=== PATIENT | male | born 1970 | race African-American/Black ===

== ENCOUNTER 2017-02-25 11:42 | Emergency (ER) | payer OTHER ==
[2017-02-25] MEDS ORDERED: Morphine INJ* 4 MG/ML 1 ML SYRINGE IV ONE (12:43)
[2017-02-25] MEDS ORDERED: Ondansetron INJ* 2 MG/ML VIAL IV ONE (12:43)
[2017-02-25] MEDS: NS 0.9% 1000 ML* 2,000 ML IV ONE ×2 (13:08→13:09)
[2017-02-25 13:43] LABS: Hematocrit 49 % (42-52); Hemoglobin 16.5 g/dl (14.0-18.0); Mean Corpuscular HGB Conc 34 g/dl (31-36); Mean Corpuscular Hemoglobin 32 pg (27-31); Mean Corpuscular Volume 97 fL (80-94); Red Cell Distribution Width 14 % (10.5-15)
[2017-02-25 13:50] LABS: Troponin I 0.01 ng/mL (<0.04)
[2017-02-25 13:56] LABS: Comments Flag Yes
[2017-02-25 13:57] LABS: Albumin 4.7 g/dL (3.2-5.2); BUN/Creatinine Ratio 15.8 (8-20); C Reactive Protein 2.96 mg/L (< 5.00); Calcium 9.8 mg/dL (8.6-10.3); EGFR African American 74.4 (>60); EGFR Non-African American 57.9 (>60); Globulin 3.3 g/dL (2-4); Potassium 3.9 mmol/L (3.5-5.0); Total Bilirubin 0.8 mg/dL (0.2-1.0)
[2017-02-25 13:59] LABS: Add Diff/Slide Review? Slide Review Added
[2017-02-25] MEDS ORDERED: Iodixanol* (CONTRAST) 320 MG/ML 100 ML SDV IV ONE (14:11)
--- NOTE | 2017-02-25 15:39 | RAD ---
Indication: Right lower quadrant pain. Contrast: Administered 100.0 ml of VISIPAQUE 320 mg/ml CT of the abdomen and pelvis was performed after oral and IV contrast administration. Coronal and sagittal reconstructed images were obtained. Lung bases demonstrate no pleural fluid, nodules or masses. Heart is of normal size without evidence of pericardial effusion. The liver is normal in size. No focal lesions or intrahepatic ductal dilatation is noted. The gallbladder demonstrates no calcific gallstones, pericholecystic fluid or wall thickening. The pancreas demonstrates no mass or pancreatic duct dilatation. The common duct is not dilated. The spleen is normal in size. Left adrenal mass measuring 14 mm is noted. This is unchanged since 2009. This likely represents an adenoma. Right adrenal gland is unremarkable. The kidneys demonstrate symmetric nephrograms. No retroperitoneal lymphadenopathy is noted. No dilated loops of bowel are noted. The colon is filled with stool. The urinary bladder is otherwise unremarkable. No evidence of bowel obstruction is noted. The prostate and seminal vesicles are grossly unremarkable. Degenerative disc disease is noted at multiple levels. IMPRESSION: Patient status post appendectomy. No abnormal masses or fluid collections are noted. Left adrenal gland mass measuring 14 mm unchanged since 2009. No hernias are noted. No other masses or fluid collections are identified.
[2017-02-25 16:45] LABS: Urine Bilirubin Negative (Negative); Urine Glucose Negative (Negative); Urine Nitrite Negative (Negative)
[2017-02-25] MEDS ORDERED: oxyCODONE/Acetamin 5/325 MG* TAB PO ONE (17:05)
--- NOTE | 2017-02-25 17:05 | ED ---
Chirag Spaulding Thomas, scribed for Augustus Emery MD on 02/25/17 at 1242 . Abdominal Pain/Male - HPI Summary HPI Summary: The pt is a 46 y/o M presenting to the ED c/o abd pain that began 5 days ago. He rates his pain 8/10. He additionally c/o constipation, vomiting, chills, and diaphoresis (excessive upon ambulation). Denies any urinary symptoms. He has been unable to keep anything down, even water. His last BM was 5 days ago. PMHx : bowel obstruction. PSHx: gastric ulcer repair, bowel obstruction, appendectomy (per EMR). - History of Current Complaint Chief Complaint: EDAbdPain Stated Complaint: WEAK,DIZZY,VOMITING Time Seen by Provider: 02/25/17 12:13 Hx Obtained From: Patient Onset/Duration: Lasting Days - 5 days, Still Present Timing: Constant Severity Currently: Severe Pain Intensity: 8 Pain Scale Used: 0-10 Numeric Aggravating Factor(s): Nothing Alleviating Factor(s): Nothing Associated Signs And Symptoms: Positive: Diaphoresis, Constipation, Vomiting, Other - POS: chills. Negative: Urinary Symptoms - Allergies/Home Medications Allergies/Adverse Reactions: Allergies Allergy/AdvReac Type Severity Reaction Status Date / Time No Known Allergies Allergy Verified 06/28/14 17:31 Home Medications: Home Medications Cholecalciferol [Vitamin D3] 50,000 unit PO WEEKLY 02/25/17 [History Confirmed 02/25/17] Escitalopram (NF) [Lexapro 20 mg (NF)] 20 mg PO DAILY 02/25/17 [History Confirmed 02/25/17] Pancrelipase (NF) [Creon (NF)] 36,000 units PO TID WITH MEALS 02/25/17 [History Confirmed 02/25/17] QUEtiapine TAB* [SEROquel TAB*] 50 mg PO DAILY 02/25/17 [History Confirmed 02/25] traZODone TAB* [Desyrel TAB*] 100 mg PO BEDTIME 02/25/17 [History Confirmed 11/09] PMH/Surg Hx/FS Hx/Imm Hx Previously Healthy: No Endocrine/Hematology History: Denies: Hx Diabetes Cardiovascular History: Reports: Hx Hypertension Denies: Hx Congestive Heart Failure Respiratory History: Denies: Hx Chronic Obstructive Pulmonary Disease (COPD) GI History: Reports: Hx Gastroesophageal Reflux Disease, Hx Obstructive Bowel, Hx Ulcer - x 3, Other GI Disorders - SBO History: Denies: Hx Renal Disease Musculoskeletal History: Denies: Hx Arthritis Sensory History: Denies: Hx Contacts or Glasses, Hx Hearing Aid Opthamlomology History: Denies: Hx Contacts or Glasses Neurological History: Reports: Hx Headaches - Surgical History Surgery Procedure, Year, and Place: [facility] patch repair of perforated ulcer- 2002. Appendectomy - 2009, Ex lap TRISH 08/06/2014, ulcer repair. R Femur surgery 2016 Hx Anesthesia Reactions: No - Immunization History Date of Tetanus Vaccine: unknown Infectious Disease History: No Infectious Disease History: Denies: History Other Infectious Disease, Traveled Outside the [place] in Last 30 Days - Family History Known Family History: Positive: Unknown - Pt is unsure of both parents medical hx due to their early deaths - Social History Alcohol Use: Occasionally Hx Substance Use: No Substance Use Type: Reports: None Hx Tobacco Use: Yes Smoking Status (MU): Current Every Day Smoker Type: Cigarettes Amount Used/How Often: 2 ppd or more Length of Time of Smoking/Using Tobacco: 35 years Have You Smoked in the Last Year: Yes Review of Systems Positive: Chills, Skin Diaphoresis Eyes: Negative ENT: Negative Cardiovascular: Negative Respiratory: Negative Positive: Abdominal Pain - onset 5 days ago, Vomiting, Other - POS: constipation Genitourinary: Negative, Other - NEG: urinary symtpoms Musculoskeletal: Negative Skin: Negative Neurological: Negative Psychological: Normal All Other Systems Reviewed And Are Negative: Yes Physical Exam - Summary Physical Exam Summary: Gen: well-appearing, mild pain distress Skin: warm, color, dry Head: normal Eyes: EOMI, JIMMY ENT: normal Neck: supple, nontender Resp: CTA, breath sounds present Cardio: RRR Abd: soft, TTP RLQ Bowel: hypoactive bowel sounds Musc: normal, strength/ROM intact Neuro: normal, sensory/motor intact, A&O x3 Psych: affect/mood appropriate Triage Information Reviewed: Yes Vital Signs On Initial Exam: Initial Vitals Temp Pulse Resp BP Pulse Ox 98.1 F 85 16 166/99 100 02/25/17 11:52 02/25/17 11:52 02/25/17 11:52 02/25/17 11:52 02/25/17 11:52 Vital Signs Reviewed: Yes - Rogers Coma Scale Coma Scale Total: 15 Diagnostics - Vital Signs Vital Signs Temp Pulse Resp BP Pulse Ox 02/25/17 11:52 98.1 F 85 16 166/99 100 - Laboratory Lab Results: Lab Results 02/25/17 02/25/17 02/25/17 Range/Units 13:17 13:17 13:17 WBC 9.0 (3.5-10.8) 10^3/ul RBC 5.10 (4.0-5.4) 10^6/ul Hgb 16.5 (14.0-18.0) g/dl Hct 49 (42-52) % MCV 97 H (80-94) fL MCH 32 H (27-31) pg MCHC 34 (31-36) g/dl RDW 14 (10.5-15) % Plt Count 233 (150-450) 10^3/ul MPV Not Reportable Neut % (Auto) 75.2 (38-83) % Lymph % (Auto) 15.2 L (25-47) % Mcculloch % (Auto) 8.5 (1-9) % Eos % (Auto) 0.2 (0-6) % Baso % (Auto) 0.9 (0-2) % Absolute Neuts (auto) 6.7 (1.5-7.7) 10^3/ul Absolute Lymphs (auto) 1.4 (1.0-4.8) 10^3/ul Absolute Monos (auto) 0.8 (0-0.8) 10^3/ul Absolute Eos (auto) 0 (0-0.6) 10^3/ul Absolute Basos (auto) 0.1 (0-0.2) 10^3/ul Absolute Nucleated RBC 0.03 10^3/ul Nucleated RBC % 0.4 INR (Anticoag Therapy) 1.14 H (0.89-1.11) APTT 29.1 (26.0-36.3) seconds Sodium 135 (133-145) mmol/L Potassium 3.9 (3.5-5.0) mmol/L Chloride 99 L (101-111) mmol/L Carbon Dioxide 27 (22-32) mmol/L Anion Gap 9 (2-11) mmol/L BUN 21 (6-24) mg/dL Creatinine 1.33 H (0.67-1.17) mg/dL Est GFR ( Amer) 74.4 (>60) Est GFR (Non-Af Amer) 57.9 (>60) BUN/Creatinine Ratio 15.8 (8-20) Glucose 89 (70-100) mg/dL Lactic Acid (0.5-2.0) mmol/L Calcium 9.8 (8.6-10.3) mg/dL Magnesium 2.0 (1.9-2.7) mg/dL Total Bilirubin 0.80 (0.2-1.0) mg/dL AST 25 (13-39) U/L ALT 14 (7-52) U/L Alkaline Phosphatase 96 (34-104) U/L Total Creatine Kinase 509 H (10-223) U/L Troponin I 0.01 (<0.04) ng/mL C-Reactive Protein 2.96 (< 5.00) mg/L Total Protein 8.0 (6.4-8.9) g/dL Albumin 4.7 (3.2-5.2) g/dL Globulin 3.3 (2-4) g/dL Albumin/Globulin Ratio 1.4 (1-3) Lipase 16 (11.0-82.0) U/L Urine Color Urine Appearance Urine pH (5-9) Ur Specific Champion (1.010-1.030) Urine Protein (Negative) Urine Ketones (Negative) Urine Blood (Negative) Urine Nitrate (Negative) Urine Bilirubin (Negative) Urine Urobilinogen (Negative) Ur Leukocyte Esterase (Negative) Urine Glucose (Negative) 02/25/17 02/25/17 Range/Units 13:17 15:45 WBC (3.5-10.8) 10^3/ul RBC (4.0-5.4) 10^6/ul Hgb (14.0-18.0) g/dl Hct (42-52) % MCV (80-94) fL MCH (27-31) pg MCHC (31-36) g/dl RDW (10.5-15) % Plt Count (150-450) 10^3/ul MPV Neut % (Auto) (38-83) % Lymph % (Auto) (25-47) % Mcculloch % (Auto) (1-9) % Eos % (Auto) (0-6) % Baso % (Auto) (0-2) % Absolute Neuts (auto) (1.5-7.7) 10^3/ul Absolute Lymphs (auto) (1.0-4.8) 10^3/ul Absolute Monos (auto) (0-0.8) 10^3/ul Absolute Eos (auto) (0-0.6) 10^3/ul Absolute Basos (auto) (0-0.2) 10^3/ul Absolute Nucleated RBC 10^3/ul Nucleated RBC % INR (Anticoag Therapy) (0.89-1.11) APTT (26.0-36.3) seconds Sodium (133-145) mmol/L Potassium (3.5-5.0) mmol/L Chloride (101-111) mmol/L Carbon Dioxide (22-32) mmol/L Anion Gap (2-11) mmol/L BUN (6-24) mg/dL Creatinine (0.67-1.17) mg/dL Est GFR ( Amer) (>60) Est GFR (Non-Af Amer) (>60) BUN/Creatinine Ratio (8-20) Glucose (70-100) mg/dL Lactic Acid 1.1 (0.5-2.0) mmol/L Calcium (8.6-10.3) mg/dL Magnesium (1.9-2.7) mg/dL Total Bilirubin (0.2-1.0) mg/dL AST (13-39) U/L ALT (7-52) U/L Alkaline Phosphatase (34-104) U/L Total Creatine Kinase (10-223) U/L Troponin I (<0.04) ng/mL C-Reactive Protein (< 5.00) mg/L Total Protein (6.4-8.9) g/dL Albumin (3.2-5.2) g/dL Globulin (2-4) g/dL Albumin/Globulin Ratio (1-3) Lipase (11.0-82.0) U/L Urine Color Yellow Urine Appearance Clear Urine pH 6.0 (5-9) Ur Specific Champion 1.054 H (1.010-1.030) Urine Protein Negative (Negative) Urine Ketones 1+ H (Negative) Urine Blood Negative (Negative) Urine Nitrate Negative (Negative) Urine Bilirubin Negative (Negative) Urine Urobilinogen Positive H (Negative) Ur Leukocyte Esterase Negative (Negative) Urine Glucose Negative (Negative) Result Diagrams: 02/25/17 13:17 02/25/17 13:17 Lab Statement: Any lab studies that have been ordered have been reviewed, and results considered in the medical decision making process. - CT CT Abd/Pel CT Interpretation: No Acute Changes - Patient status post appendectomy. No abnormal masses or fluid collections are noted. Left adrenal gland mass measuring 14 mm unchanged since 2009. No hernias are noted. No other masses or fluid collections are identified. CT Interpretation Completed By: Radiologist Re-Evaluation - Re-Evaluation First Eval Re-Evaluation Time: 16:49 Change: Unchanged Abdominal Pain Fem Course/Dx - Course Course Of Treatment: NO CRITICAL CARE TIME. DISCUSSED RESULTS WITH PATIENT/ . WILL TREAT FOR POSSIBLE WORSENING OF GASTRIC ULCER; PATIENT HAS A GI DOCTOR WITH [facility] WHO HE WILL CONTACT FOR FOLLOW UP. PATIENT KNOWS TO RETURN TO ED IF WORSE OR QUESTIONS OR CONCERNS. - Diagnoses Provider Diagnoses: Abdominal pain, Dehydration Discharge - Discharge Plan Condition: Stable Disposition: HOME Prescriptions: Omeprazole 40 mg PO BID #60 cap Ondansetron ODT TAB* [Zofran 4 MG Odt TAB*] 4 mg PO Q6H PRN #15 tab.odt PRN Reason: Nausea Ranitidine TAB (NF) [Zantac TAB (NF)] 150 mg PO DAILY #30 tab Sucralfate TAB* [Carafate*] 1 gm PO TID #60 tab oxyCODONE/Acetamin 5/325 MG* [Percocet 5/325 TAB*] 1 tab PO Q6H PRN #10 tab MDD 4 PRN Reason: Pain Patient Education Materials: Abdominal Pain (ED), Dehydration (ED) Referrals: Jania Burton MD [Primary Care Provider] - Additional Instructions: FOLLOW UP WITH YOUR PRIMARY CARE DOCTOR AND DIVISION COMMANDER. RETURN TO THE EMERGENCY DEPARTMENT FOR ANY WORSENING OF YOUR CONDITION; PAIN, FEVER, YOU FEEL ILL, BLOOD IN YOUR VOMIT OR STOOL OR QUESTIONS OR CONCERNS. The documentation as recorded by the Chirag mckay Thomas accurately reflects the service I personally performed and the decisions made by , Augustus Emery MD.
[2017-02-25 17:35] VITALS: BP 149/92
== END 2017-02-25 17:33 | disposition home or self-care (01) ==
LOC: ED 11:42
DX: R10.31 Right lower quadrant pain (principal); E86.0 Dehydration; I10 Essential (primary) hypertension; K21.9 Gastro-esophageal reflux disease without esophagitis; F17.210 Nicotine dependence, cigarettes, uncomplicated; E27.9 Disorder of adrenal gland, unspecified
CPT/HCPCS: 36415; 74177; 80053; 81003; 82550; 83605; 83690; 83735; 84484; 85025; 85610; 85730; 86140; 96360; 96374; 96375; 99284; A9270-GY; J2270; J2405; Q9967

== ENCOUNTER 2018-03-18 13:04 | Emergency (ER) | payer OTHER ==
--- NOTE | 2018-03-18 14:10 | ED ---
Back Pain - HPI Summary HPI Summary: Patient is a 47-year-old male who presents emergency department for exacerbation of chronic low back pain. Patient is complaining of worsening back pain over the last several weeks. 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 Patient states he is unable to take anti-inflammatories. Denies recent injuries. Patient has an appointment with pain management for this , 2 days. Pain radiates into right leg. Admits to intermittent tingling and right leg. Denies bowel or bladder incontinence or retention. Pt. states he has been feeling lightheaded and dizzy secondary to pain. Symptoms are mild in severity. Movement makes symptoms worse. Rest makes symptoms better. - History of Current Complaint Chief Complaint: EDBackInjuryPain Stated Complaint: LIGHTHEADED/DIZZINESS Time Seen by Provider: 03/18/18 13:36 Hx Obtained From: Patient, Family/Box Toe Cutter Pain Intensity: 8 - Allergies/Home Medications Allergies/Adverse Reactions: Allergies Allergy/AdvReac Type Severity Reaction Status Date / Time No Known Allergies Allergy Verified 06/28/14 17:31 PMH/Surg Hx/FS Hx/Imm Hx Previously Healthy: Yes Endocrine/Hematology History: Denies: Hx Diabetes Cardiovascular History: Reports: Hx Hypertension Denies: Hx Congestive Heart Failure Respiratory History: Denies: Hx Chronic Obstructive Pulmonary Disease (COPD) GI History: Reports: Hx Gastroesophageal Reflux Disease, Hx Obstructive Bowel, Hx Ulcer - x 3, Other GI Disorders - SBO History: Denies: Hx Renal Disease Musculoskeletal History: Denies: Hx Arthritis Sensory History: Denies: Hx Contacts or Glasses, Hx Hearing Aid Opthamlomology History: Denies: Hx Contacts or Glasses Neurological History: Reports: Hx Headaches - Surgical History Surgery Procedure, Year, and Place: [facility] patch repair of perforated ulcer- 2002. Appendectomy - 2009, Ex lap TRISH 08/06/2014, ulcer repair. R Femur surgery 2016 Hx Anesthesia Reactions: No - Immunization History Date of Tetanus Vaccine: unknown Infectious Disease History: No Infectious Disease History: Denies: History Other Infectious Disease, Traveled Outside the [place] in Last 30 Days - Family History Known Family History: Positive: Unknown - Pt is unsure of both parents medical hx due to their early deaths - Social History Occupation: Unemployed Lives: With Family Alcohol Use: Occasionally Hx Substance Use: No Substance Use Type: Reports: None Hx Tobacco Use: Yes Smoking Status (MU): Heavy Every Day Tobacco Smoker Type: Cigarettes Amount Used/How Often: 2 ppd or more Length of Time of Smoking/Using Tobacco: 35 years Have You Smoked in the Last Year: Yes Review of Systems Positive: Other - Low back pain Positive: Paresthesia - Intermittent tingling to right leg All Other Systems Reviewed And Are Negative: Yes Physical Exam Triage Information Reviewed: Yes Vital Signs On Initial Exam: Initial Vitals Temp Pulse Resp BP Pulse Ox 97.6 F 72 16 138/99 99 03/18/18 13:10 03/18/18 13:10 03/18/18 13:10 03/18/18 13:10 03/18/18 13:10 Vital Signs Reviewed: Yes Appearance: Positive: Well-Appearing - Pt. lying in bed in NAD. S.O. present. Skin: Positive: Warm, Dry Head/Face: Positive: Normal Head/Face Inspection Eyes: Positive: Normal Neck: Positive: Supple Musculoskeletal: Positive: Other - 5/5 strength in bilteral LEs. Negative straight leg test bilaterally. Neurological: Positive: Normal, CN Intact II-III Psychiatric: Positive: Affect/Mood Appropriate Diagnostics - Vital Signs Vital Signs Temp Pulse Resp BP Pulse Ox 03/18/18 13:10 97.6 F 72 16 138/99 99 - Laboratory Lab Statement: Any lab studies that have been ordered have been reviewed, and results considered in the medical decision making process. Back Pain Course/Dx - Course Course Of Treatment: Presenting for exacerbation of chronic low back pain. He is afebrile. He has no neurological deficits on exam or evidence of cauda equina syndrome. Will give short course of muscle relaxer and pain medication. Patient to follow up with pain clinic in 2 days. LADLE REPAIRER was queried and no red flags noted. To return to the ear symptoms change or worsen. Patient understands and agrees with plan. - Diagnoses Provider Diagnoses: Chronic back pain Discharge - Sign-Out/Discharge Documenting (check all that apply): Patient Departure - Discharge Plan Condition: Good Disposition: HOME Prescriptions: Cyclobenzaprine TAB* [Flexeril 10 MG TAB*] 10 mg PO TID PRN #12 tab PRN Reason: Pain Hydrocodone/Acetaminophen [Hydrocodone-Acetamin 5-325 mg] 1 each PO Q6H #12 tablet MDD 4tablets Patient Education Materials: Chronic Back Pain (ED) Referrals: Jesus Stewart DO [Primary Care Provider] - Additional Instructions: Follow-up with pain management as scheduled for Take medications as directed Return to ER if symptoms change or worsen - Billing Disposition and Condition Condition: GOOD Disposition: Home
[2018-03-18 14:40] VITALS: BP 140/82
== END 2018-03-18 14:38 | disposition home or self-care (01) ==
LOC: ED 13:04
DX: M54.2 Cervicalgia (principal); F17.210 Nicotine dependence, cigarettes, uncomplicated
CPT/HCPCS: 99282

== ENCOUNTER 2018-03-30 19:33 | Emergency (ER) | payer OTHER ==
[2018-03-30] MEDS ORDERED: NS 0.9% 1000 ML* 1,000 ML IV ONE ×2 (20:07→20:43)
--- NOTE | 2018-03-30 20:11 | ED ---
Dizziness - HPI Summary HPI Summary: This is nely Leija documenting for attending Dr. Ruth Ann Cosme MD. Pt is a 47 y/o pt who presents to ED c/o dizziness. The onset was about 30 mins ago while he was cutting grass. He describes the dizziness as lightheadedness and he was not able to bear his own weight and needed help walking. Notes head and lip pain. Rates his pain intensity as 8/10. - History Of Current Complaint Chief Complaint: EDNeurologicalDeficit Stated Complaint: VOMITING/DIZZY Time Seen by Provider: 03/30/18 19:55 Hx Obtained From: Patient Onset/Duration: Still Present, Suddenly Severity Currently: Severe - 8/10 Character: Lightheaded Associated Signs And Symptoms: Positive: Unsteady Gait, Other: - head and lip pain - Allergies/Home Medications Allergies/Adverse Reactions: Allergies Allergy/AdvReac Type Severity Reaction Status Date / Time No Known Allergies Allergy Verified 03/30/18 19:38 PMH/Surg Hx/FS Hx/Imm Hx Endocrine/Hematology History: Denies: Hx Diabetes Cardiovascular History: Reports: Hx Hypertension Denies: Hx Congestive Heart Failure Respiratory History: Denies: Hx Chronic Obstructive Pulmonary Disease (COPD) GI History: Reports: Hx Gastroesophageal Reflux Disease, Hx Obstructive Bowel, Hx Ulcer - x 3, Other GI Disorders - SBO History: Denies: Hx Renal Disease Musculoskeletal History: Denies: Hx Arthritis Sensory History: Denies: Hx Contacts or Glasses, Hx Hearing Aid Opthamlomology History: Denies: Hx Contacts or Glasses Neurological History: Reports: Hx Headaches - Surgical History Surgery Procedure, Year, and Place: [facility] patch repair of perforated ulcer- 2002. Appendectomy - 2009, Ex lap TRISH 08/06/2014, ulcer repair. R Femur surgery 2016 Hx Anesthesia Reactions: No - Immunization History Date of Tetanus Vaccine: unknown Infectious Disease History: No Infectious Disease History: Denies: History Other Infectious Disease, Traveled Outside the [place] in Last 30 Days - Family History Known Family History: Positive: Other - Pt is unsure of both parents medical hx due to their early deaths - Social History Alcohol Use: Occasionally Hx Substance Use: No Substance Use Type: Reports: None Hx Tobacco Use: Yes Smoking Status (MU): Heavy Every Day Tobacco Smoker Type: Cigarettes Amount Used/How Often: 2 ppd or more Length of Time of Smoking/Using Tobacco: 35 years Have You Smoked in the Last Year: Yes Review of Systems Positive: Other - Lip pain Neurological: Other - Dizziness Positive: Headache All Other Systems Reviewed And Are Negative: Yes Physical Exam - Summary Physical Exam Summary: VITAL SIGNS: Reviewed. GENERAL: Patient is a well-developed and nourished male who is lying comfortable in the stretcher. Patient is not in any acute respiratory distress. HEAD AND FACE: No signs of trauma. No ecchymosis, hematomas or skull depressions. No sinus tenderness. EYES: PERRLA, EOMI x 2, No injected conjunctiva, no nystagmus. EARS: Hearing grossly intact. Ear canals and tympanic membranes are within normal limits. MOUTH: Oropharynx within normal limits. NECK: Supple, trachea is midline, no adenopathy, no JVD, no carotid bruit, no c- spine tenderness, neck with full ROM. CHEST: Symmetric, no tenderness at palpation LUNGS: Clear to auscultation bilaterally. No wheezing or crackles. CVS: Regular rate and rhythm, S1 and S2 present, no murmurs or gallops appreciated. ABDOMEN: Soft, non-tender. No signs of distention. No rebound no guarding, and no masses palpated. Bowel sounds are normal. EXTREMITIES: FROM in all major joints, no edema, no cyanosis or clubbing. NEURO: Alert and oriented x 3. No acute neurological deficits. Speech is normal and follows commands. SKIN: Dry and warm Triage Information Reviewed: Yes Vital Signs On Initial Exam: Initial Vitals Temp Pulse Resp BP Pulse Ox 98.2 F 83 20 150/86 100 03/30/18 19:35 03/30/18 19:35 03/30/18 19:35 03/30/18 19:35 03/30/18 19:35 Vital Signs Reviewed: Yes Diagnostics - Vital Signs Vital Signs Temp Pulse Resp BP Pulse Ox 03/30/18 19:35 98.2 F 83 20 150/86 100 - Laboratory Result Diagrams: 03/30/18 20:13 03/30/18 20:13 Lab Statement: Any lab studies that have been ordered have been reviewed, and results considered in the medical decision making process. - EKG 20:10 Cardiac Rate: NL - 78 bpm EKG Rhythm: Sinus Rhythm EKG Interpretation: Normal interval, left axis deviation, no ischemic changes. Re-Evaluation - Re-Evaluation First Eval Re-Evaluation Time: 21:30 Change: Improved - Pt feels better after he was hydrated in ER and pt is able to walk with steady gait. Dizzy Course/Dx - Course Course Of Treatment: -Pt is a 47 y/o pt who presents to ED c/o dizziness. He describes the dizziness as lightheadedness and he was not able to bear his own weight and needed help walking. Notes head and lip pain and rates his pain intensity as 8/10. Physical exam was normal. EKG at 20:10 showed normal sinus rhythm at 78 bpm with normal interval, left axis deviation, and no ischemic changes. In ED course pt was given fluids. At 21:30 pt feels better after he was hydrated in ER and pt is able to walk with steady gait. Pt is diagnosed with heat exhaustion and discharged home. He is told to drink fluids and follow up with PCP and pt is agreeable with this plan. - Diagnoses Provider Diagnoses: Heat exhaustion Discharge - Sign-Out/Discharge Documenting (check all that apply): Patient Departure - Discharge - Discharge Plan Condition: Stable Disposition: HOME Patient Education Materials: Heat Exhaustion (ED) Referrals: Jesus Stewart DO [Primary Care Provider] - 2 Days Additional Instructions: Drink fluids. RETURN TO ED FOR ANY NEW OR WORSENING SYMPTOMS.
[2018-03-30 20:23] LABS: ABS Basophils 0.1 10^3/ul (0-0.2); ABS Eosinophils 0.1 10^3/ul (0-0.6); ABS Monocytes 1.5 10^3/ul (0-0.8); ABS Neutrophils 11.4 10^3/ul (1.5-7.7); ABS Nucleated RBC 0 10^3/ul; Eosinophil % 0.3 % (0-6); Hematocrit 45 % (42-52); Hemoglobin 15.2 g/dl (14.0-18.0); Lymphocyte % 13.3 % (25-47); Mean Corpuscular HGB Conc 34 g/dl (31-36); Mean Corpuscular Hemoglobin 32 pg (27-31); Mean Corpuscular Volume 94 fL (80-94); Mean Platelet Volume 8.3 um3 (7.4-10.4); Nucleated Red Blood Cells % 0; Platelet Count 250 10^3/ul (150-450); Red Blood Count 4.73 10^6/ul (4.00-5.40); Red Cell Distribution Width 14 % (10.5-15); White Blood Count 15.1 10^3/ul (3.5-10.8)
[2018-03-30 20:38] LABS: EGFR Non-African American 45.3 (>60)
[2018-03-30 21:41] VITALS: BP 130/84
== END 2018-03-30 22:12 | disposition home or self-care (01) ==
LOC: ED 19:33
DX: X30.XXXA Exposure to excessive natural heat, initial encounter (principal); Y92.9 Unspecified place or not applicable; K21.9 Gastro-esophageal reflux disease without esophagitis; I10 Essential (primary) hypertension
CPT/HCPCS: 36415; 80053; 82550; 83735; 85025; 93005; 96360; 99282

== ENCOUNTER 2018-04-21 10:19 | Observation (INO) | payer OTHER ==
[2018-04-21] MEDS ORDERED: Aspirin 81 mg CHEW TAB* 81 MG TAB.CHEW PO ONE (10:48)
[2018-04-21] MEDS ORDERED: Nitroglycerin 2% OINT* 1 GM PAK TOPICAL ONE (10:48)
--- NOTE | 2018-04-21 10:53 | ED ---
HPI Chest Pain - HPI Summary HPI Summary: Pt is a 47 y/o male who presents to [facility] c/o chest pain. He states hes been having intermittent CP for 2 months, but has been becoming progressively worse. Pt complains of dizziness, diaphoresis, and nausea associated with the CP. He denies any LE edema or vomiting. CP occurs both at rest and exertion. He describes his current CP as mid-sternal and an 8.5/10 in severity. Pt has HTN, and is not on medication for it. As per kyle, his BP has never been this high before. He denies any PMHx of PA, and has never had a stress test before. Pt denies any drug use, but smokes 1 ppd. - History of Current Complaint Chief Complaint: EDChestPainROMI Time Seen by Provider: 04/21/18 10:32 Hx Obtained From: Patient, Family/Cabin Outfitter - [place] Onset/Duration: Started Weeks Ago - 2 months ago, Worse Since Timing: Intermittent Current Severity: Severe Pain Intensity: 8 Pain Scale Used: 0-10 Numeric Chest Pain Location: Mid Sternal Chest Pain Radiates: No Aggravating Factor(s): Other: - Non-medicated HTN Alleviating Factor(s): Nothing Associated Signs and Symptoms: Positive: Chest Pain, Dizziness, Nausea. Negative: Calf Pain/Swelling - Allergy/Home Medications Allergies/Adverse Reactions: Allergies Allergy/AdvReac Type Severity Reaction Status Date / Time No Known Allergies Allergy Verified 04/21/18 10:29 PMH/Surg Hx/FS Hx/Imm Hx Endocrine/Hematology History: Denies: Hx Diabetes Cardiovascular History: Reports: Hx Hypertension - No meds Denies: Hx Congestive Heart Failure, Hx Myocardial Infarction Respiratory History: Denies: Hx Chronic Obstructive Pulmonary Disease (COPD) GI History: Reports: Hx Gastroesophageal Reflux Disease, Hx Obstructive Bowel, Hx Ulcer - x 3, Other GI Disorders - SBO History: Denies: Hx Renal Disease Musculoskeletal History: Denies: Hx Arthritis Sensory History: Denies: Hx Contacts or Glasses, Hx Hearing Aid Opthamlomology History: Denies: Hx Contacts or Glasses Neurological History: Reports: Hx Headaches - Surgical History Surgery Procedure, Year, and Place: [place] patch repair of perforated ulcer- 2002. Appendectomy - 2009, Ex lap TRISH 08/06/2014, ulcer repair. R Femur surgery 2016 Hx Anesthesia Reactions: No - Immunization History Date of Tetanus Vaccine: unknown Infectious Disease History: No Infectious Disease History: Denies: History Other Infectious Disease, Traveled Outside the [place] in Last 30 Days - Family History Known Family History: Positive: Unknown - Pt is unsure of both parents medical hx due to their early deaths - Social History Alcohol Use: Occasionally Hx Substance Use: No Substance Use Type: Reports: None Hx Tobacco Use: Yes Smoking Status (MU): Heavy Every Day Tobacco Smoker Type: Cigarettes Amount Used/How Often: 2 ppd or more Length of Time of Smoking/Using Tobacco: 35 years Have You Smoked in the Last Year: Yes Review of Systems Positive: Skin Diaphoresis Positive: Chest Pain Positive: Nausea. Negative: Vomiting Negative: Edema - LE Neurological: Other - Dizziness All Other Systems Reviewed And Are Negative: Yes Physical Exam - Summary Physical Exam Summary: Appearance: Well appearing, no pain distress Skin: warm, dry, reflects adequate perfusion Head/face: normal Eyes: EOMI, JIMMY ENT: normal Neck: supple, non-tender Respiratory: CTA, breath sounds present Cardiovascular: RRR, pulses symmetrical Abdomen: non-tender, soft Bowel: present Musculoskeletal: normal, strength/ROM intact Neuro: normal, sensory motor intact, A&Ox3 Triage Information Reviewed: Yes Vital Signs On Initial Exam: Initial Vitals Temp Pulse Resp BP Pulse Ox 98.6 F 63 18 173/106 99 04/21/18 10:25 04/21/18 10:25 04/21/18 10:25 04/21/18 10:25 04/21/18 10:25 Vital Signs Reviewed: Yes Diagnostics - Vital Signs Vital Signs Temp Pulse Resp BP Pulse Ox 04/21/18 10:25 98.6 F 63 18 173/106 99 - Laboratory Result Diagrams: 04/21/18 10:57 04/21/18 10:57 Lab Statement: Any lab studies that have been ordered have been reviewed, and results considered in the medical decision making process. - Radiology CXR Xray Interpretation: No Acute Changes - No evidence for acute disease. ED physician reviewed radiology report. Radiology Interpretation Completed By: Radiologist - EKG 10:35 Cardiac Rate: Bradycardia - 58 bpm EKG Rhythm: Sinus Rhythm ST Segment: Normal EKG Interpretation: No acute changes Chest Pain Course/Dx - Course Course Of Treatment: Pt is a 47 y/o male who presents to [facility] c/o intermittent CP for 2 months, which has been becoming progressively worse. Pt complains of dizziness, diaphoresis, and nausea associated with the CP. He denies any LE edema or vomiting. He describes his current CP as mid-sternal and an 8.5/10 in severity. Pt has HTN, and is not on medication for it. He denies any PMHx of PA , and has never had a stress test before. Pt smokes 1 ppd. A physical exam was normal. Blood work/UA obtained. A CXR was negative. An EKG revealed bradycardia at 58 bpm. Final dx are chest pain and unstable angina. Spoke to Dr. Meek, who accepts pt for admission. Pt is agreeable with this plan. - Chest Pain Differential Diagnosis/HQI/PQRI: ACS, Chest Wall, Lower Respiratory Infection - Diagnoses Provider Diagnoses: Chest pain, Unstable angina - Provider Notifications Discussed Care Of Patient With: Connie Meek Time Discussed With Above Provider: 12:05 Instructed by Provider To: Admit As Inpatient - Critical Care Time Critical Care Time: 30-74 min Discharge - Sign-Out/Discharge Documenting (check all that apply): Patient Departure - Admit, Sign-Out Patient Signing out patient TO: Connie Meek - Discharge Plan Condition: Stable Disposition: ADMITTED TO [facility] - Billing Disposition and Condition Condition: STABLE Disposition: Admitted to [facility] - Attestation Statements Document Initiated by Vernonibe: Yes Documenting Scribe: Joseline Serrano Provider For Whom Magan is Documenting (Include Credential): Gen Baca MD Scribe Attestation: Joseline Spaulding, scribed for Gen Baca MD on 04/21/18 at 1353. Scribe Documentation Reviewed: Yes Provider Attestation: The documentation as recorded by the Joseline mckay accurately reflects the service I personally performed and the decisions made by , Gen Baca MD
[2018-04-21 11:12] LABS: ABS Basophils 0 10^3/ul (0-0.2); ABS Eosinophils 0.1 10^3/ul (0-0.6); ABS Monocytes 1.1 10^3/ul (0-0.8); ABS Neutrophils 8.2 10^3/ul (1.5-7.7); ABS Nucleated RBC 0 10^3/ul; Eosinophil % 0.6 % (0-6); Hematocrit 41 % (42-52); Hemoglobin 13.9 g/dl (14.0-18.0); Lymphocyte % 17.4 % (25-47); Mean Corpuscular HGB Conc 34 g/dl (31-36); Mean Corpuscular Hemoglobin 32 pg (27-31); Mean Corpuscular Volume 95 fL (80-94); Mean Platelet Volume 8.3 um3 (7.4-10.4); Nucleated Red Blood Cells % 0.1; Platelet Count 213 10^3/ul (150-450); Red Blood Count 4.28 10^6/ul (4.00-5.40); Red Cell Distribution Width 14 % (10.5-15); White Blood Count 11.3 10^3/ul (3.5-10.8)
[2018-04-21 11:33] LABS: INR 0.91 (0.77-1.02)
--- NOTE | 2018-04-21 11:38 | RAD ---
INDICATION: Chest pain. COMPARISON: Comparison is made with a prior chest x-ray study from July 12 2016. TECHNIQUE: A portable view of the chest was obtained. FINDINGS: Cardiac and mediastinal contours appear to be within normal limits. The lungs are clear. No pleural effusion is seen. IMPRESSION: NO EVIDENCE FOR ACUTE DISEASE.
[2018-04-21] MEDS ORDERED: Cyclobenzaprine TAB* 10 MG PO PRN (12:40)
[2018-04-21] MEDS ORDERED: PROCHLORPERAZINE INJ 5 MG/ML 2 ML VIAL IV PRN (12:47)
[2018-04-21] MEDS ORDERED: Nitroglycerin TAB 0.4 MG* 0.4 MG TAB SL PRN (12:47)
--- NOTE | 2018-04-21 13:07 | ADMNOTE ---
Subjective Date of Service: 04/21/18 Interval History: HISTORY AND PHYSICAL Mr Mensah is a 47yo M with PMH of HTN, perforated ulcer s/p repair, tobacco abuse, who presents to ED with c/o chest pain for a couple months. He states he was on his usual state of health until 2 months ago, when he started to have episodes of retrosternal chest pain, 8/10 intensity, no radiation. There are no alleviating or worsening factors, and episodes have happened at rest and on exertion. He states episodes have become more frequent over the last 10 days. No N/V, dyspnea, palpitations, fever, chills, or other associated symptoms. Family History: Findings - Parents passed when he was a child. No other family members. Social History: Findings - Smoker since age 9, 1-2 ppd. Denies alcohol or drug use. SDM is [facility]) [phone] Past Medical History: Findings - HTN (not on meds), GERD, PUD s/p perforated ulcer s/p repair, SBO s/p TRISH Review of Systems - Measurements Intake and Output: Intake and Output Last 24 Hours 04/19/18 04/20/18 04/21/18 04/22/18 06:59 06:59 06:59 06:59 Weight 185 lb - Review of Systems General Comments: 14 point ROS performed and all pertinent positive and negative findings are in the HPI. Objective Active Medications: Acetaminophen (Tylenol Tab*) 650 mg PO Q6H PRN PRN Reason: pain/fever Aspirin (Aspirin Ec Tab*) 81 mg PO DAILY LYLY Cyclobenzaprine HCl (Flexeril Tab*) 10 mg PO TID PRN PRN Reason: SPASMS Escitalopram Oxalate (Lexapro (Nf)) 20 mg PO DAILY [facility] Heparin Sodium (Porcine) (Heparin Vial(*)) 5,000 units SUBCUT Q8HR LYLY Nitroglycerin (Nitroglycerin Tab 0.4 Mg*) 0.4 mg SL Q5M PRN PRN Reason: ANGINA Non-Formulary Medication (Omeprazole [Omeprazole]) 40 mg PO BID LYLY Pancrelipase (Creon (Nf)) 36,000 units PO TID WITH MEALS LYLY Prochlorperazine Edisylate (Compazine Inj*) 5 mg IV Q6H PRN PRN Reason: NAUSEA/VOMITING Ranitidine HCl (Zantac Tab (Nf)) 150 mg PO DAILY [facility]; Protocol Sucralfate (Carafate*) 1 gm PO TID LYLY Trazodone HCl (Desyrel Tab*) 100 mg PO BEDTIME [facility] Vital Signs - 8 hr 04/21/18 04/21/18 04/21/18 10:25 10:35 10:36 Temperature 98.6 F Pulse Rate 63 61 54 Respiratory 18 Rate Blood Pressure 173/106 175/106 (mmHg) O2 Sat by Pulse 99 99 98 Oximetry 04/21/18 04/21/18 04/21/18 11:00 11:05 11:35 Temperature Pulse Rate 53 55 69 Respiratory 12 15 12 Rate Blood Pressure 146/98 146/92 (mmHg) O2 Sat by Pulse 99 97 95 Oximetry 04/21/18 04/21/18 04/21/18 12:00 12:05 12:35 Temperature Pulse Rate 53 53 56 Respiratory 13 14 9 Rate Blood Pressure 139/89 141/92 (mmHg) O2 Sat by Pulse 97 97 99 Oximetry 04/21/18 04/21/18 12:59 13:00 Temperature 98.3 F Pulse Rate 67 Respiratory 16 20 Rate Blood Pressure 141/92 (mmHg) O2 Sat by Pulse 98 Oximetry Oxygen Devices in Use Now: None Appearance: Young gentleman lying in ED stretcher in NAD Eyes: No Scleral Icterus Ears/Nose/Mouth/Throat: Mucous Membranes Moist Neck: Trachea Midline Respiratory: Symmetrical Chest Expansion and Respiratory Effort, Clear to Auscultation Cardiovascular: NL Sounds; No Murmurs; No JVD, RRR Abdominal: NL Sounds; No Tenderness; No Distention Extremities: No Edema Neurological: Alert and Oriented x 3, NL Muscle Strength and Tone Result Diagrams: 04/21/18 10:57 04/21/18 10:57 Additional Lab and Data: Laboratory Tests 04/21/18 04/21/18 04/21/18 10:57 10:57 10:57 WBC 11.3 H Hgb 13.9 L Hct 41 L Plt Count 213 INR (Anticoag Therapy) APTT Sodium 137 Potassium 3.9 Chloride 103 Carbon Dioxide 28 Anion Gap 6 BUN 13 Creatinine 0.95 Glucose 95 Lactic Acid 1.3 Calcium 8.8 Magnesium 1.8 L Total Bilirubin 0.40 AST 17 ALT 22 Alkaline Phosphatase 74 Troponin I 0.00 Total Protein 6.3 L Albumin 3.8 Globulin 2.5 Albumin/Globulin Ratio 1.5 04/21/18 10:57 WBC Hgb Hct Plt Count INR (Anticoag Therapy) 0.91 APTT 26.1 Sodium Potassium Chloride Carbon Dioxide Anion Gap BUN Creatinine Glucose Lactic Acid Calcium Magnesium Total Bilirubin AST ALT Alkaline Phosphatase Troponin I Total Protein Albumin Globulin Albumin/Globulin Ratio Diagnostic Imaging: Patient Name: RIRI MENSAH Medical Record#: [id number] Ordering Physician: Gen Baca MD Acct.#: [id number] : 1970 Age: 47 Sex: M Location: EMERGENCY DEPARTMENT Exam Date: 04/21/18 1048 ADM Status: PRE ER Order Information: CHEST AP PORTABLE Accession Number: [id number] CPT: 06143 INDICATION: Chest pain. COMPARISON: Comparison is made with a prior chest x-ray study from July 12 2016. TECHNIQUE: A portable view of the chest was obtained. FINDINGS: Cardiac and mediastinal contours appear to be within normal limits. The lungs are clear. No pleural effusion is seen. IMPRESSION: NO EVIDENCE FOR ACUTE DISEASE. <Electronically signed by Han Lao MD in OV> 04/21/18 1135 Dictated By: Han Lao MD Dictated Date/Time: 04/21/18 1135 Transcribed Date/Time: 04/21/18 1133 Copy to: CC:Gen Baca MD; Jesus Stewart DO Imaging - [facility] Imaging - [facility] Imaging - [facility] [address] [address] ph ([phone]) ph ([phone]) ph ([phone]) This report is only to be considered final once signed by the Provider(s) as displayed in the "<Electronically Signed by >" field (s). Absence of a signature indicates the report is in a draft status and still needs to be finalized. In the event this document was created by someone other than the signing Provider, the individual initiating the document will be listed in the "Entered by:" or "Dictated by:" myers. 1 of 1 EKG Data: 04/21/18 Sinus bradycardia at 58 bpm, with LAFB, ST elevation compatible with early repol, T wave inversion in II and flat in III, with some change when compared to 03/30/18 Assess/Plan/Problems-Billing Assessment: Mr Mensah is a 47yo M with PMH of HTN (not on meds), GERD, PUD s/p perforated ulcer s/p repair, SBO s/p TRISH, tobacco abuse, who presented to ED with c/o retrosternal chest pain, with increased frequency recently. - Patient Problems (1) Chest pain Comment: - Chest pain r/o ACS. - Pain happens at rest or with exertion, has no alleviating or provoking factors , but I'm concerned with the increase in frequency. Patient is a smoker and has HTN. - Will admit to Telemetry, check serial troponins, and pursue stress test if ACS ruled out. - Has a significant h/o GERD/PUD, but states this pain is different. (2) HTN (hypertension) Comment: - Not on any medications at this time - will continue to monitor. (3) Tobacco abuse Comment: - Nicotine supplementation. (4) Hx of gastroesophageal reflux (GERD) Comment: - Continue omeprazole. (5) DVT prophylaxis Comment: - SQ heparin. (6) Full code status Status and Disposition: OBV. Approximately 45 minutes were spent with patient interview, medical records review, physical examination to complete this admission. More than half of this time was spent face to face with patient and coordination of care.
[2018-04-21] MEDS ORDERED: Nicotine Inhaler* 10 MG AMP INH PRN (13:25)
[2018-04-21] MEDS ORDERED: Mouth Piece, Nicotine* 1 EACH CARTRIDGE INH PRN (13:25)
[2018-04-21] MEDS ORDERED: Magnesium Sulfate 2 GM IV* 2 GM/50 ML BAG IVPB ONE (13:28)
[2018-04-21] MEDS: Heparin VIAL(*) 5000 UNITS/ML VIAL (FIVE THOUSAND) SUBCUT SCH ×2 (13:57→20:47)
[2018-04-21] MEDS: Acetaminophen TAB* 325 MG PO PRN ×2 (14:10→20:44)
[2018-04-21] MEDS: Sucralfate TAB* 1 GM PO SCH (16:49)
[2018-04-21] MEDS: Omeprazole CAP* 20 MG PO SCH (16:49)
[2018-04-21] MEDS ORDERED: PANCRELIPASE 36000 UNIT PO SCH (17:00)
[2018-04-21] MEDS: Pancrelipase CAP* 5,000 UNITS CAP PO SCH (17:42)
--- NOTE | 2018-04-21 19:42 | HP ---
CC: Dr. Stewart * HISTORY AND PHYSICAL: DATE OF ADMISSION: 04/21/18 PRIMARY CARE PROVIDER: Dr. Stewart TIME OF EVALUATION: 12:31 p.m. CHIEF COMPLAINT: Chest pain. HISTORY OF PRESENT ILLNESS: Mr. Mensah is a 47-year-old male with a past medical history of hypertension, tobacco abuse, peptic ulcer disease. DICTATION ENDS HERE [id number]/[facility] #: [id number] [facility]
[2018-04-21] MEDS ORDERED: traZODone TAB* 100 MG PO SCH (21:00)
[2018-04-22] MEDS: Heparin VIAL(*) 5000 UNITS/ML VIAL (FIVE THOUSAND) SUBCUT SCH (05:11)
[2018-04-22] MEDS: Acetaminophen TAB* 325 MG PO PRN (07:23)
[2018-04-22] MEDS: Sucralfate TAB* 1 GM PO SCH (07:23)
[2018-04-22] MEDS: Pancrelipase CAP* 5,000 UNITS CAP PO SCH (07:23)
[2018-04-22] MEDS: Omeprazole CAP* 20 MG PO SCH (07:24)
[2018-04-22 07:34] VITALS: BP 136/78
[2018-04-22] MEDS ORDERED: Famotidine TAB* 20 MG PO SCH (09:00)
[2018-04-22] MEDS ORDERED: Escitalopram (NF) 10 MG TAB PO SCH (09:00)
[2018-04-22] MEDS ORDERED: Aspirin EC TAB* 81 MG TAB.EC PO SCH (09:00)
--- NOTE | 2018-04-22 10:14 | RAD ---
Edited for charges. INDICATION: Chest pain. COMPARISON: There are no relevant prior studies available for comparison. Technique: A single day myocardial perfusion stress study was performed. Initially a resting study was performed. The patient was given an intravenous injection of 10.6 mCi of technetium 99m tetrofosmin and and the heart was imaged in multiple projections. The patient returned later in the day and under the direction of Dr. Yoder, the patient was exercised to a peak heart rate of 152 beats per minute which was 88% of the maximum predicted heart rate. Subsequently the patient was given intravenous injection of 25.6 mCi of technetium 99m tetrofosmin and the heart was imaged in multiple projections. Images were reconstructed in the axial, sagittal and coronal planes and in a 3- D format. FINDINGS: There appears to be hypokinesis in the septum. The left ventricular ejection fraction is calculated to be 52%. Review of the images demonstrates mild decreased activity present in the inferior wall on the post exercise and resting images which is no longer present on the attenuation corrected images and therefore most consistent with attenuation artifact. There is no evidence for infarct or ischemia. IMPRESSION: 1. NO EVIDENCE FOR INFARCT OR ISCHEMIA. 2. SEPTAL HYPOKINESIS AND SLIGHTLY DECREASED EJECTION FRACTION. ASSESSMENT: Low risk. Based on imaging criteria from ACC/AHA 2002 Guideline Update for the Management of Patients With Chronic Stable Angina Table 23. Noninvasive Risk Stratification. MTDD
--- NOTE | 2018-04-22 14:46 | PN ---
Hospitalist Progress Note Date of Service: 04/22/18 SUBJECTIVE: Pt is a 47 y/o male with a hx of HTN, GERD, and 1-2 PPD tobacco use who presented to the ER with 8/10 midsternal non-radiating CP x 2 weeks with increasing intensity. Pt stated pain began while at rest; does not change with exertion, palpation or position; nothing makes the pain better or worse. The pain is intermittent but does not change with time of day. Pt stated he has dizziness and nausea that accompanies the intermittent episodes of CP. Pt denied headache, fever, recent travel, sick contacts, dyspnea, cough, wheezing, abd pain, vomiting, or leg pain/warmth. PMH: GERD, small bowel obstruction, gastric ulcer, HTN MEDS: * escitalopram 20mg tab PO daily * Creon 36,000 units PO TID w/ meals * Trazodone 100mg tab PO at bedtime * Omeprazole 40mg tab PO BID * Ranitidine 150mg tab PO daily * Sucralfate 1gm tab PO TID * Cyclobenzaprine 10mg tab PO TID Allergies: NKDA Fam Hx: Unknown Surgical Hx: * Perforated gastric ulcer repair, 2002 * Appendectomy 2009 * Right femur surgery, 2015 Social Hx: * Tob: 1-2 PPD smoker, occasional ETOH use, denies illicit drug use. OBJECTIVE: Exam: VS: BP 173/106, P 63/reg, RR 18/non-labored, SpO2 99% RA, Temp 98.7F. HEENT: atraumatic, sclera non-icteric and not injected, MEAGAN, EOMI, no accessory breathing muscle use, no lymphadenopathy, no JVD noted. Chest: LS CTA in all myers with equal chest rise/fall. No W/R/R CV: S1 & S2 present, no S3 or S4 sounds, no murmurs, rubs, or gallops. Abd: BS present, no dullness to percussion, no bruising, pain, or masses noted. MSK: 5/5 strength and full ROM in all extremities Neuro: pt is alert and oriented to person, place, time with no cognitive or motor deficits ASSESSMENT: * Chest pain * GERD * HTN * Tobacco use PLAN: * ECG * CXR * CBC, BMP * Cardiac injury panel * Cardiac stress test
--- NOTE | 2018-04-24 02:06 | DS ---
DISCHARGE SUMMARY: DATE OF ADMISSION: 04/21/18 DATE OF DISCHARGE: 04/22/18 ADMITTING PHYSICIAN: Connie Penny MD ATTENDING PROVIDER: Keyona Machado MD * (DICTATED BY SOHA RODRIGUEZ) ADMISSION DIAGNOSES: 1. Chest pain. 2. History of peptic ulcer disease. 3. Hypertension. 4. Gastroesophageal reflux disease. 5. Tobacco abuse. DISCHARGE DIAGNOSES: 1. Chest pain. 2. History of peptic ulcer disease. 3. Hypertension. 4. Gastroesophageal reflux disease. 5. Tobacco abuse. CONSULTATIONS: None. PROCEDURE: Nuclear stress test showing a low risk for cardiac ischemia on 04/22. BRIEF MEDICAL HISTORY: Mr. Mensah is a 47-year-old gentleman with past medical history of hypertension, perforated ulcer for which he is status post repair and also had other abdominal surgeries for lysis of adhesions who presented to the emergency room with complaints of chest pain for the past 2 months. The patient notes that his chest pain has been intermittent; however, it has become more frequent lately, sometimes intense, 8/10, retrosternal with no radiation and no alleviating or worsening factors. He denies any nausea, vomiting, fever , chills, dyspnea, palpitations. He does have a history of peptic ulcer disease for which he had a perforated ulcer that was fixed surgically and he has not been followed up by a GI doctor recently. He was evaluated in the emergency room and noted to have a flat troponin and an EKG showing no significant ST changes, but given his age and multiple risk factors, we were asked to see the patient for observation overnight and to rule out acute coronary syndrome. HOSPITAL COURSE: The patient was admitted to the telemetry unit under hospitalist services. He had 2 other draws of troponin 3 hours apart that were negative and his repeated EKG in the morning showed no significant changes. He had a nuclear stress test performed that showed to be a low risk for myocardial ischemia. He had no recurrent chest pain since admission. We discussed the results for him and we believe that he is probably having symptoms related to peptic ulcer disease and encouraged to continue PPI coverage at home and to avoid any acidic or spicy food. He will also follow up with his primary care physician, which will need referral to GI doctor for a possible upper endoscopy to be done soon. The patient has been stable and on this morning of discharge, his vitals were stable and he was afebrile. His lungs were clear to auscultation bilaterally. His heart was regular rate and rhythm without rubs, murmurs or gallops. His abdomen was soft, nontender, and nondistended. He will be discharged to home and will follow up with his primary care physician next week. DISCHARGE MEDICATIONS: Include: 1. Lexapro 20 mg p.o. daily. 2. Pancrelipase 36,000 units p.o. daily. 3. Desyrel 100 mg p.o. q.h.s. 4. Flexeril 10 mg q.8 hours as needed for muscle spasm. 5. Omeprazole 40 mg p.o. b.i.d. 6. Zantac 150 mg p.o. daily. 7. Carafate 1 g p.o. t.i.d. x10 days. SOHA RODRIGUEZ [id number]/[facility] #: [id number] MTDD
== END 2018-04-22 11:42 | disposition home or self-care (01) ==
LOC: ED 10:19 → MEDTELE 12:52
PROVIDERS: ADMIT Internal Medicine; ATTEND Internal Medicine
DX: R07.9 Chest pain, unspecified (principal); Z87.11 Personal history of peptic ulcer disease; I10 Essential (primary) hypertension; K21.9 Gastro-esophageal reflux disease without esophagitis; R42 Dizziness and giddiness; R11.0 Nausea; F17.210 Nicotine dependence, cigarettes, uncomplicated; I20.0 Unstable angina; Z72.0 Tobacco use
CPT/HCPCS: 36415; 71045; 78452; 80053; 80061; 83605; 83735; 84484; 85025; 85610; 85730; 93005; 93017; 99285; A9270-GY; A9502; G0378; J1644; J3475

== ENCOUNTER 2018-06-30 11:14 | Emergency (ER) | payer OTHER ==
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
[2018-06-30] MEDS ORDERED: NS 0.9% 1000 ML* 1,000 ML IV ONE (12:29)
[2018-06-30 12:52] LABS: ABS Basophils 0.1 10^3/ul (0-0.2); ABS Eosinophils 0 10^3/ul (0-0.6); ABS Lymphocytes 1.3 10^3/ul (1.0-4.8); ABS Monocytes 0.7 10^3/ul (0-0.8); ABS Neutrophils 7.2 10^3/ul (1.5-7.7); ABS Nucleated RBC 0 10^3/ul; Eosinophil % 0.2 % (0-6); Hematocrit 40 % (42-52); Hemoglobin 13.6 g/dl (14.0-18.0); Lymphocyte % 13.8 % (25-47); Mean Corpuscular HGB Conc 34 g/dl (31-36); Mean Corpuscular Hemoglobin 32 pg (27-31); Mean Corpuscular Volume 95 fL (80-94); Mean Platelet Volume 8.7 fL (7.4-10.4); Nucleated Red Blood Cells % 0; Platelet Count 229 10^3/ul (150-450); Red Blood Count 4.24 10^6/ul (4.00-5.40); Red Cell Distribution Width 14 % (10.5-15); White Blood Count 9.2 10^3/ul (3.5-10.8)
[2018-06-30 13:16] LABS: EGFR Non-African American 62.5 (>60)
[2018-06-30 14:55] VITALS: BP 155/89
--- NOTE | 2018-06-30 15:38 | ED ---
HPI Chest Pain - HPI Summary HPI Summary: Patient is a 47-year-old male presenting to the ED with generalized complaint. He states of the past month he has been feeling intermittent fatigue, chest pain , shortness of breath. He denies any abdominal pain, urinary symptoms or back pain. He denies any cardiac history. Patient is smoker. He states he has good follow-up with his PCP. He states over the past month he has not changed his diet or his lifestyle in any way. He admits to a poor diet. He also endorses some intermittent headaches and blurry vision. He states he has been followed by his PCP for these issues but wanted to come to the ED for further evaluation. He denies any fevers, sweats, chills. - History of Current Complaint Chief Complaint: EDDizziness Time Seen by Provider: 06/30/18 12:24 Hx Obtained From: Patient Onset/Duration: Started Weeks Ago Timing: Constant Initial Severity: Moderate Current Severity: Moderate Pain Intensity: 0 Pain Scale Used: 0-10 Numeric Chest Pain Location: Diffuse Chest Pain Radiates: No Aggravating Factor(s): Nothing Alleviating Factor(s): Nothing Associated Signs and Symptoms: Positive: Chest Pain, Vision Changes, Headaches - Risk Factors Pulmonary Embolism Risk Factors: Negative TAD Risk Factors: Negative - Allergy/Home Medications Allergies/Adverse Reactions: Allergies Allergy/AdvReac Type Severity Reaction Status Date / Time No Known Allergies Allergy Verified 06/30/18 11:19 PMH/Surg Hx/FS Hx/Imm Hx Previously Healthy: Yes Endocrine/Hematology History: Denies: Hx Diabetes Cardiovascular History: Reports: Hx Angina, Hx Hypertension - No meds Denies: Hx Congestive Heart Failure, Hx Myocardial Infarction, Hx Pacemaker/ ICD Respiratory History: Denies: Hx Chronic Obstructive Pulmonary Disease (COPD) GI History: Reports: Hx Gastroesophageal Reflux Disease, Hx Obstructive Bowel, Hx Ulcer - x 3, Other GI Disorders - SBO History: Denies: Hx Renal Disease Musculoskeletal History: Denies: Hx Arthritis Sensory History: Denies: Hx Contacts or Glasses, Hx Hearing Aid Opthamlomology History: Denies: Hx Contacts or Glasses Neurological History: Reports: Hx Headaches Psychiatric History: Denies: Hx Panic Disorder - Surgical History Surgery Procedure, Year, and Place: [facility] patch repair of perforated ulcer- 2002. Appendectomy - 2009, Ex lap TRISH 08/06/2014, ulcer repair. R Femur surgery 2016 Hx Anesthesia Reactions: No - Immunization History Date of Tetanus Vaccine: unknown Hx Pertussis Vaccination: No Immunizations Up to Date: Yes Infectious Disease History: No Infectious Disease History: Denies: History Other Infectious Disease, Traveled Outside the [place] in Last 30 Days - Family History Known Family History: Positive: Unknown - Pt is unsure of both parents medical hx due to their early deaths, Other - Pt is unsure of both parents medical hx due to their early deaths - Social History Occupation: Employed Full-time Lives: With Family Alcohol Use: None Hx Substance Use: No Substance Use Type: Reports: None Hx Tobacco Use: Yes Smoking Status (MU): Heavy Every Day Tobacco Smoker Type: Cigarettes Amount Used/How Often: 2 ppd or more Length of Time of Smoking/Using Tobacco: 38 years Have You Smoked in the Last Year: Yes Review of Systems Positive: Fatigue, Skin Diaphoresis. Negative: Fever, Chills Positive: Blurred Vision. Negative: Photophobia, Diplopia, Drainage, Erythema Negative: Sore Throat, Ear Ache, Nasal Discharge Positive: Chest Pain. Negative: Palpitations Positive: Shortness Of Breath. Negative: Cough Negative: Abdominal Pain, Vomiting, Diarrhea, Nausea Negative: Arthralgia, Myalgia Negative: Rash, Bruising Positive: Headache. Negative: Weakness, Paresthesia, Numbness, Syncope Psychological: Normal All Other Systems Reviewed And Are Negative: Yes Physical Exam Triage Information Reviewed: Yes Vital Signs On Initial Exam: Initial Vitals Temp Pulse Resp BP Pulse Ox 99 F 67 16 146/94 100 06/30/18 11:16 06/30/18 11:16 06/30/18 11:16 06/30/18 11:16 06/30/18 11:16 Vital Signs Reviewed: Yes Appearance: Positive: Well-Appearing, Well-Nourished Skin: Positive: Warm, Skin Color Reflects Adequate Perfusion Head/Face: Positive: Normal Head/Face Inspection Eyes: Positive: EOMI, JIMMY, Conjunctiva Clear. Negative: Conjunctiva Inflammed ENT: Positive: Pharynx normal Neck: Positive: Supple, Nontender, No Lymphadenopathy Respiratory/Lung Sounds: Positive: Clear to Auscultation, Breath Sounds Present Cardiovascular: Positive: RRR, Pulses are Symmetrical in both Upper and Lower Extremities Musculoskeletal: Positive: Normal, Strength/ROM Intact Neurological: Positive: Speech Normal Psychiatric: Positive: Normal, Affect/Mood Appropriate AVPU Assessment: Alert Diagnostics - Vital Signs Vital Signs Temp Pulse Resp BP Pulse Ox 06/30/18 15:31 98.0 F 62 19 155/89 100 06/30/18 14:51 62 19 155/89 100 06/30/18 14:20 58 16 149/88 99 06/30/18 14:00 63 24 100 06/30/18 13:50 61 20 147/92 100 06/30/18 13:20 57 19 148/97 99 06/30/18 13:00 59 20 100 06/30/18 12:37 57 18 145/98 99 06/30/18 12:35 61 20 138/92 100 06/30/18 12:20 56 19 138/92 100 06/30/18 12:19 19 06/30/18 11:16 99 F 67 16 146/94 100 - Laboratory Lab Results: Lab Results 06/30/18 06/30/18 06/30/18 Range/Units 12:38 12:38 12:38 WBC 9.2 (3.5-10.8) 10^3/ul RBC 4.24 (4.00-5.40) 10^6/ul Hgb 13.6 L (14.0-18.0) g/dl Hct 40 L (42-52) % MCV 95 H (80-94) fL MCH 32 H (27-31) pg MCHC 34 (31-36) g/dl RDW 14 (10.5-15) % Plt Count 229 (150-450) 10^3/ul MPV 8.7 (7.4-10.4) fL Neut % (Auto) 78.2 (38-83) % Lymph % (Auto) 13.8 L (25-47) % Lee % (Auto) 7.2 H (0-7) % Eos % (Auto) 0.2 (0-6) % Baso % (Auto) 0.6 (0-2) % Absolute Neuts (auto) 7.2 (1.5-7.7) 10^3/ul Absolute Lymphs (auto) 1.3 (1.0-4.8) 10^3/ul Absolute Monos (auto) 0.7 (0-0.8) 10^3/ul Absolute Eos (auto) 0 (0-0.6) 10^3/ul Absolute Basos (auto) 0.1 (0-0.2) 10^3/ul Absolute Nucleated RBC 0 10^3/ul Nucleated RBC % 0 Sodium 140 (135-145) mmol/L Potassium 3.6 (3.5-5.0) mmol/L Chloride 108 (101-111) mmol/L Carbon Dioxide 25 (22-32) mmol/L Anion Gap 7 (2-11) mmol/L BUN 10 (6-24) mg/dL Creatinine 1.24 H (0.67-1.17) mg/dL Est GFR ( Amer) 75.6 (>60) Est GFR (Non-Af Amer) 62.5 (>60) BUN/Creatinine Ratio 8.1 (8-20) Glucose 97 (70-100) mg/dL Lactic Acid 1.0 (0.5-2.0) mmol/L Calcium 9.1 (8.6-10.3) mg/dL Magnesium 1.6 L (1.9-2.7) mg/dL Total Bilirubin 0.50 (0.2-1.0) mg/dL AST 28 (13-39) U/L ALT 23 (7-52) U/L Alkaline Phosphatase 87 (34-104) U/L Total Creatine Kinase 392 H (10-223) U/L Troponin I 0.00 (<0.04) ng/mL Total Protein 6.6 (6.4-8.9) g/dL Albumin 4.1 (3.2-5.2) g/dL Globulin 2.5 (2-4) g/dL Albumin/Globulin Ratio 1.6 (1-3) TSH 0.20 L (0.34-5.60) mcIU/mL Thyroxine (T4) 4.37 L (6.09-12.23) g/dL Result Diagrams: 06/30/18 12:38 06/30/18 12:38 Lab Statement: Any lab studies that have been ordered have been reviewed, and results considered in the medical decision making process. Chest Pain Course/Dx - Course Course Of Treatment: During the course of treatment, the patient is evaluated for diffuse and intermittent atypical chest pain as well as some shortness of breath, dizziness and headache over the past 1 month. He states he would like further evaluation despite his follow-ups with his PCP. CT brain obtained which shows no acute intracranial abnormalities. Chest x-ray shows no acute cardiopulmonary disease. Labs obtained are all WNL. He is given 1 L fluids. He states he is feeling somewhat better and is willing to follow back up with his PCP. Troponin 0.00. He is nontoxic in appearing. Lungs CTA. RRR. No abdominal pain on deep palpation throughout. Slight tenderness on palpation of the chest wall. EOMI/PERRLA with no conjunctival injection. As this has been going on for 1 month, I feel he is appropriate for discharge and will follow up with his PCP and not a candidate for admission at this time. - Chest Pain Differential Diagnosis/HQI/PQRI: Chest Wall - Diagnoses Provider Diagnoses: Atypical chest pain Discharge - Sign-Out/Discharge Documenting (check all that apply): Patient Departure - Discharge Plan Condition: Stable Disposition: HOME Referrals: Jesus Stewart DO [Primary Care Provider] - Additional Instructions: Please follow-up with your PCP in 2-3 days Discontinue smoking - Billing Disposition and Condition Condition: STABLE Disposition: Home
== END 2018-06-30 15:32 | disposition home or self-care (01) ==
LOC: ED 11:14
DX: R07.89 Other chest pain (principal); F17.210 Nicotine dependence, cigarettes, uncomplicated; K21.9 Gastro-esophageal reflux disease without esophagitis
CPT/HCPCS: 36415; 70450; 71046; 80053; 82550; 83605; 83735; 84436; 84443; 84484; 85025; 86703; 93005; 96360; 96361; 99283

== ENCOUNTER 2019-08-07 07:41 | Emergency (ER) | payer OTHER ==
[2019-08-07 08:24] LABS: Hematocrit 42 % (42-52); Hemoglobin 14.2 g/dL (14.0-18.0); Mean Corpuscular HGB Conc 34 g/dL (31-36); Mean Corpuscular Hemoglobin 31 pg (27-31); Mean Corpuscular Volume 92 fL (80-94); Mean Platelet Volume 8.3 fL (7.4-10.4); Platelet Count 291 10^3/uL (150-450); Red Blood Count 4.55 10^6 /uL (4.18-5.48); Red Cell Distribution Width 15 % (10-15); White Blood Count 8.2 10^3/uL (3.5-10.8)
[2019-08-07 08:34] LABS: ABS Basophils 0.1 10^3/ul (0-0.2); ABS Lymphocytes 1.4 10^3/ul (1.0-4.8); ABS Neutrophils 5.6 10^3/ul (1.5-7.7); Eosinophil % 0.4 %; Lymphocyte % 17.5 %; Nucleated Red Blood Cells % 0.2
[2019-08-07 08:42] LABS: Albumin 4.5 g/dL (3.2-5.2); Albumin/Globulin Ratio 1.7 (1-3); BUN/Creatinine Ratio 8.5 (8-20); C Reactive Protein 7.53 mg/L (<8.01); Calcium 9.4 mg/dL (8.6-10.3); EGFR African American 80.5 (>60); EGFR Non-African American 66.5 (>60); Globulin 2.7 g/dL (2-4); Potassium 3.8 mmol/L (3.5-5.0); Total Bilirubin 0.5 mg/dL (0.2-1.0); Total Protein 7.2 g/dL (6.4-8.9)
[2019-08-07] MEDS ORDERED: Ondansetron INJ* 2 MG/ML VIAL IV ONE (10:13)
[2019-08-07] MEDS ORDERED: NS 0.9% 1000 ML** 1,000 ML IV ONE (10:13)
--- NOTE | 2019-08-07 10:16 | ED ---
Abdominal Pain/Male - HPI Summary HPI Summary: Patient is a 48 y/o M presenting to the ED for a chief complaint of suprapubic abdominal pain that began 2 hours after eating on the night of 08/06/19. Patient states he ate at home after which he began to feel abdominal pain with a stabbing sensation that radiated to the chest. He also notes having diaphoresis, nausea, and 7-9 episodes of vomiting. He reports passing gas, but admits constipation, with his last bowel movement occurring 2 days ago. Patient denies objective fever or chills. He denies any aggravating or alleviating factors. PMHx is significant for small bowel obstruction and ulcers. PSHx is significant for ulcer repair 5 years ago. FMHx is not significant. Patient admits tobacco use, but denies alcohol or drug use. - History of Current Complaint Chief Complaint: EDAbdPain Stated Complaint: ABD PAIN PER EMS Time Seen by Provider: 08/07/19 10:06 Hx Obtained From: Patient Onset/Duration: Sudden Onset, Still Present Timing: Constant Severity Initially: Severe Severity Currently: Severe Pain Intensity: 9 Pain Scale Used: 0-10 Numeric Location: Suprapubic Radiates: Yes Radiates to: Chest Character: Other: - Stabbing Aggravating Factor(s): Nothing Alleviating Factor(s): Nothing Associated Signs And Symptoms: Positive: Diaphoresis, Chest Pain - Radiates from abdomen, Constipation, Nausea, Vomiting - Allergies/Home Medications Allergies/Adverse Reactions: Allergies Allergy/AdvReac Type Severity Reaction Status Date / Time No Known Allergies Allergy Verified 06/30/18 11:19 Home Medications: Home Medications Magnesium Oxide TAB* [MagOx 400 TAB*] 800 mg PO BEDTIME 08/07/19 [History Confirmed 08/07/19] Pancrelipase (NF) [Creon (NF)] 36,000 units PO BEDTIME 08/07/19 [History Confirmed 08/07/19] QUEtiapine XR TAB* [Seroquel Xr 50 MG TAB*] 50 mg PO BEDTIME 08/07/19 [History Confirmed 08/07/19] Ranitidine TAB (NF) [Zantac TAB (NF)] 150 mg PO BID 08/07/19 [History Confirmed 08/07/19] busPIRone TAB* [Buspar TAB*] 5 mg PO BID 08/07/19 [History Confirmed 08/07/19] traMADol TAB* [Ultram*] 50 - 100 mg PO Q6HR PRN 08/07/19 [History Confirmed ] PMH/Surg Hx/FS Hx/Imm Hx Previously Healthy: Yes Endocrine/Hematology History: Denies: Hx Diabetes Cardiovascular History: Reports: Hx Angina, Hx Hypertension - No meds Denies: Hx Congestive Heart Failure, Hx Myocardial Infarction, Hx Pacemaker/ ICD Respiratory History: Denies: Hx Chronic Obstructive Pulmonary Disease (COPD) GI History: Reports: Hx Gastroesophageal Reflux Disease, Hx Obstructive Bowel, Hx Ulcer - x 3, Other GI Disorders - SBO History: Denies: Hx Renal Disease Musculoskeletal History: Denies: Hx Arthritis Sensory History: Denies: Hx Contacts or Glasses, Hx Legally Blind, Hx Deafness, Hx Hearing Aid Opthamlomology History: Denies: Hx Contacts or Glasses, Hx Legally Blind EENT History: Denies: Hx Deafness Neurological History: Reports: Hx Headaches Psychiatric History: Denies: Hx Panic Disorder - Surgical History Surgical History: Yes Surgery Procedure, Year, and Place: [facility] patch repair of perforated ulcer- 2002. Appendectomy - 2009, Ex lap TRISH 08/06/2014, ulcer repair. R Femur surgery 2016 Hx Anesthesia Reactions: No - Immunization History Date of Tetanus Vaccine: unknown Infectious Disease History: No Infectious Disease History: Denies: History Other Infectious Disease, Traveled Outside the [place] in Last 30 Days - Family History Known Family History: Positive: Unknown - Pt is unsure of both parents medical hx due to their early deaths, Other - Pt is unsure of both parents medical hx due to their early deaths - Social History Occupation: Unemployed Lives: With Family Alcohol Use: None Hx Substance Use: No Substance Use Type: Reports: None Hx Tobacco Use: Yes Smoking Status (MU): Heavy Every Day Tobacco Smoker Type: Cigarettes Amount Used/How Often: 2 ppd or more Length of Time of Smoking/Using Tobacco: 38 years Have You Smoked in the Last Year: Yes Review of Systems Negative: Fever, Chills Positive: Chest Pain - Radiates from abdomen Positive: Abdominal Pain - Suprapubic, Vomiting, Nausea, Other - Positive constipation All Other Systems Reviewed And Are Negative: Yes Physical Exam - Summary Physical Exam Summary: VITAL SIGNS: Reviewed. GENERAL: Patient is a well-developed and nourished male who is lying comfortable in the stretcher. Patient is not in any acute respiratory distress. HEAD AND FACE: Normocephalic and atraumatic. EYES: PERRLA, EOMI x 2, No injected conjunctiva. EARS: Hearing grossly intact. Ear canals and tympanic membranes are WNL. MOUTH: Oropharynx within normal limits.Dry oral mucosa. NECK: Supple, trachea is midline, no adenopathy, no JVD. CHEST: Symmetric, no tenderness at palpation. LUNGS: Clear to auscultation bilaterally. No wheezing or crackles. CVS: RRR, S1 and S2 present, no murmurs or gallops appreciated. ABDOMEN: Soft, non-tender. No signs of distention. Increased tympanic sounds in the upper abdomen and decreased tympanic sounds in the lower abdomen. No rebound , no guarding, and no masses palpated. No abdominal bruit or pulsations. EXTREMITIES: FROM in all major joints, no edema, no cyanosis or clubbing. NEURO: Alert and oriented x 3. No acute neurological deficits. Speech is normal. SKIN: Dry and warm. Triage Information Reviewed: Yes Vital Signs On Initial Exam: Initial Vitals Temp Pulse Resp BP Pulse Ox 97.0 F 76 14 143/89 99 08/07/19 07:42 08/07/19 07:42 08/07/19 07:42 08/07/19 07:42 08/07/19 07:42 Vital Signs Reviewed: Yes Procedures - Sedation Patient Received Moderate/Deep Sedation with Procedure: No Diagnostics - Vital Signs Vital Signs Temp Pulse Resp BP Pulse Ox 08/07/19 09:20 98.4 F 77 17 149/76 99 08/07/19 07:42 97.0 F 76 14 143/89 99 - Laboratory Lab Results: Lab Results 08/07/19 08/07/19 08/07/19 Range/Units 08:16 08:16 08:16 WBC 8.2 (3.5-10.8) 10^3/uL RBC 4.55 (4.18-5.48) 10^6 /uL Hgb 14.2 (14.0-18.0) g/dL Hct 42 (42-52) % MCV 92 (80-94) fL MCH 31 (27-31) pg MCHC 34 (31-36) g/dL RDW 15 (10-15) % Plt Count 291 (150-450) 10^3/uL MPV 8.3 (7.4-10.4) fL Neut % (Auto) 69.4 % Lymph % (Auto) 17.5 % [place] % (Auto) 12.0 % Eos % (Auto) 0.4 % Baso % (Auto) 0.7 % Absolute Neuts (auto) 5.6 (1.5-7.7) 10^3/ul Absolute Lymphs (auto) 1.4 (1.0-4.8) 10^3/ul Absolute Monos (auto) 1.0 H (0-0.8) 10^3/ul Absolute Eos (auto) 0.0 (0-0.6) 10^3/ul Absolute Basos (auto) 0.1 (0-0.2) 10^3/ul Absolute Nucleated RBC 0.0 10^3/ul Nucleated RBC % 0.2 Sodium 139 (135-145) mmol/L Potassium 3.8 (3.5-5.0) mmol/L Chloride 105 (101-111) mmol/L Carbon Dioxide 26 (22-32) mmol/L Anion Gap 8 (2-11) mmol/L BUN 10 (6-24) mg/dL Creatinine 1.17 (0.67-1.17) mg/dL Est GFR ( Amer) 80.5 (>60) Est GFR (Non-Af Amer) 66.5 (>60) BUN/Creatinine Ratio 8.5 (8-20) Glucose 110 H (70-100) mg/dL Lactic Acid 1.3 (0.5-2.0) mmol/L Calcium 9.4 (8.6-10.3) mg/dL Total Bilirubin 0.50 (0.2-1.0) mg/dL AST 31 (13-39) U/L ALT 35 (7-52) U/L Alkaline Phosphatase 96 (34-104) U/L C-Reactive Protein 7.53 (<8.01) mg/L Total Protein 7.2 (6.4-8.9) g/dL Albumin 4.5 (3.2-5.2) g/dL Globulin 2.7 (2-4) g/dL Albumin/Globulin Ratio 1.7 (1-3) Lipase 15 (11.0-82.0) U/L Result Diagrams: 08/07/19 08:16 08/07/19 08:16 Lab Statement: Any lab studies that have been ordered have been reviewed, and results considered in the medical decision making process. - Radiology Abdomen X-ray Radiology Interpretation Completed By: Radiologist Summary of Radiographic Findings: Abdomen X-ray IMPRESSION: No free air or obstruction is noted. Reviewed by Dr. Miranda. - CT Abdomen/Pelvis CT CT Interpretation Completed By: Radiologist Summary of CT Findings: Abdomen/Pelvis CT IMPRESSION: No abnormal masses or fluid collections are noted. No free air is noted. No other masses or fluid collections are identified. Left adrenal mass measuring 1.5 cm present on multiple prior exams. Reviewed by Dr. Miranda. Abdominal Pain Male Course/Dx - Course Assessment/Plan: Patient is a 48 y/o M presenting to the ED for a chief complaint of suprapubic abdominal pain that began 2 hours after eating on the night of 08/06/19. Patient states he ate at home after which he began to feel abdominal pain with a stabbing sensation that radiates to the chest. He also notes having diaphoresis, nausea, and 7-9 episodes of vomiting. He reports passing gas, but admits constipation, with his last bowel movement occurring 2 days ago. Patient denies objective fever or chills. He denies any aggravating or alleviating factors. PMHx is significant for small bowel obstruction. PSHx is significant for abdominal surgery 5 years ago. FMHx is not significant. Patient admits tobacco use, but denies alcohol or drug use. PMH: hypertension, GERD, ulcer disease, perforated ulcer, small bowel obstruction, and tobacco abuse. 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 Blood work was without any significant abnormality except for glucose of 110, and the urinalysis is negative for UTI. Abdominal x-ray IMPRESSION: No free air or obstruction is noted. Abdominal and pelvic CT IMPRESSION: No abnormal masses or fluid collections are noted. No free air is noted. No other masses or fluid collections are identified. Left adrenal mass measuring 1.5 cm present on multiple prior exams. I informed patient about the left adrenal mass and it is very imperative and important to follow up with the primary care physician. The patient understands and agrees. The patient reports that he knew about these findings. Since the patient is feeling better and has no other complaints the patient will be discharged home with follow-up with primary care physician. Patient reports that he passed a lot of gas and now he has no symptoms. I discussed all the findings and test results with the patient. Patient was instructed to return to the emergency room immediately if any of the symptoms return or worsen. Plan of care was discussed with the patient who understands and agrees. All questions were answered at the patient' s satisfaction. There were no further complaints or concerns. Lung exam before discharge: CTA B/L. Good air exchange. No wheezing or crackles heard. CVS: S1 and S2 present. No murmurs appreciated. Patient is alert and oriented x 3. Patient is hemodynamically stable. Patient will be discharged home to follow up with his PCP in the next 2-3 days. - Diagnoses Differential Diagnosis/HQI/PQRI: Appendicitis, Bowel Obstruction, Constipation, Diverticulitis, Ureteral Stone Provider Diagnoses: Nausea and vomiting, Constipation, Lower abdominal pain, Adrenal mass, Left adrenal mass Discharge ED - Sign-Out/Discharge Documenting (check all that apply): Patient Departure - Discharge - Discharge Plan Condition: Stable Disposition: HOME Prescriptions: Magnesium Citrate [Citrate of Magnesia] 300 ml PO ONCE #1 bottle Ondansetron ODT TAB* [Zofran 4 MG Odt TAB*] 4 mg PO Q8H PRN #10 tab.odt PRN Reason: Constipation Polyethylene Glycol 3350* [Miralax*] 17 gm PO DAILY PRN #12 packet PRN Reason: Constipation Sodium Phosphate ADULT ENEMA* [Fleet Enema*] 1 enema HI BEDTIME PRN #1 btl PRN Reason: Constipation Patient Education Materials: Constipation (ED) Referrals: Jesus Stewart DO [Primary Care Provider] - Additional Instructions: FOLLOW UP WITH YOUR PRIMARY CARE PROVIDER WITHIN ONE WEEK. RETURN TO THE ED FOR ANY WORSENING OR NEW SYMPTOMS. Your abdomen/pelvis CT showed a left adrenal mass. - Billing Disposition and Condition Condition: STABLE Disposition: Home - Attestation Statements Document Initiated by Scribe: Yes Documenting Scribe: Pebbles Ritter Provider For Whom Scribe is Documenting (Include Credential): Aydin Miranda MD Scribe Attestation: IPebbles, scribed for Aydin Miranda MD on 08/07/19 at 2132. Scribe Documentation Reviewed: Yes Provider Attestation: The documentation as recorded by the scribe, Pebbles Ritter accurately reflects the service I personally performed and the decisions made by me, Aydin Miranda MD Status of Scribe Document: Viewed
[2019-08-07 10:40] LABS: Urine Appearance Cloudy; Urine Bilirubin Negative (Negative); Urine Blood Negative (Negative); Urine Color Amber; Urine Glucose Negative (Negative); Urine Ketones Negative (Negative); Urine Nitrite Negative (Negative); Urine Protein 2+(100 mg/dL) (Negative); Urine Urobilinogen Negative (Negative)
[2019-08-07 10:43] LABS: Urine Bacteria Absent (Absent); Urine Red Blood Cell 1+(3-5/hpf) (Absent); Urine Squamous Epithelial Cell Present (Absent); Urine White Blood Cell Trace(0-5/hpf) (Absent)
[2019-08-07] MEDS ORDERED: Iohexol 300* (CONTRAST) 10 ML SDV IV ONE (11:09)
[2019-08-07 12:57] VITALS: BP 162/102
== END 2019-08-07 13:00 | disposition home or self-care (01) ==
LOC: ED 07:41
DX: R10.30 Lower abdominal pain, unspecified (principal); R11.2 Nausea with vomiting, unspecified; K59.00 Constipation, unspecified; E27.9 Disorder of adrenal gland, unspecified; R61 Generalized hyperhidrosis; I10 Essential (primary) hypertension; K21.9 Gastro-esophageal reflux disease without esophagitis; F17.210 Nicotine dependence, cigarettes, uncomplicated
CPT/HCPCS: 36415; 74019; 74177; 80053; 81003; 81015; 83605; 83690; 84484; 85025; 86140; 87086; 96361; 96374; 99283; J2405; Q9967

== ENCOUNTER 2019-09-13 02:19 | Emergency (ER) | payer OTHER ==
[2019-09-13 02:43] LABS: ABS Basophils 0.1 10^3/ul (0-0.2); ABS Eosinophils 0.1 10^3/ul (0-0.6); ABS Lymphocytes 1.8 10^3/ul (1.0-4.8); ABS Monocytes 0.7 10^3/ul (0-0.8); ABS Neutrophils 7.7 10^3/ul (1.5-7.7); Eosinophil % 0.7 %; Hematocrit 43 % (42-52); Hemoglobin 14.6 g/dL (14.0-18.0); Lymphocyte % 17.8 %; Mean Corpuscular HGB Conc 34 g/dL (31-36); Mean Corpuscular Hemoglobin 32 pg (27-31); Mean Corpuscular Volume 92 fL (80-94); Mean Platelet Volume 8.6 fL (7.4-10.4); Platelet Count 302 10^3/uL (150-450); Red Blood Count 4.64 10^6 /uL (4.18-5.48); Red Cell Distribution Width 14 % (10-15); White Blood Count 10.4 10^3/uL (3.5-10.8)
[2019-09-13 02:47] LABS: INR 1.19 (0.82-1.09)
[2019-09-13 02:53] LABS: ALT 22 U/L (7-52); AST 23 U/L (13-39); Albumin 4.7 g/dL (3.2-5.2); Albumin/Globulin Ratio 1.7 (1-3); Alkaline Phosphatase 100 U/L (34-104); Anion Gap 11 mmol/L (2-11); BUN/Creatinine Ratio 8.2 (8-20); Blood Urea Nitrogen 9 mg/dL (6-24); CO2 Carbon Dioxide 27 mmol/L (22-32); Calcium 9.7 mg/dL (8.6-10.3); Chloride 101 mmol/L (101-111); EGFR African American 86.1 (>60); EGFR Non-African American 71.1 (>60); Globulin 2.8 g/dL (2-4); Glucose 91 mg/dL (70-100); Potassium 3.7 mmol/L (3.5-5.0); Sodium 139 mmol/L (135-145); Total Protein 7.5 g/dL (6.4-8.9)
[2019-09-13] MEDS ORDERED: Al Hydrox/Mg Hydrox/Simet LIQ* 30 ML UDC PO ONE (03:11)
[2019-09-13] MEDS ORDERED: Lidocaine 2% VISCOUS* 15 ML UDC PO ONE (03:11)
[2019-09-13 03:12] LABS: HCG Pregnancy < 0.60 mIU/mL
--- NOTE | 2019-09-13 03:17 | ED ---
Complex/Multi-Sys Presentation - HPI Summary HPI Summary: Patient is a 49 y/o M presenting to [facility] with complaints of epigastric pain, mid-sternal chest pain, and N/V. He states that Sx onset around 2030 on 09/12/19 while he was lying down. He states that when he stood up, he became nauseous and started vomiting. He sat down for a while and became light-headed. He notes some diaphoresis with his chest pain. On triage, pain is rated 10/10, eating is noted to aggravate Sx. No diarrhea, fever, or cough noted. He denies Hx of cardiac disease but states that he has Hx of GERD and ulcers. He is on Omeprazole, but notes that he ran out of this medication. Last dosage of this medication was 0900 09/12/19. He states that he had a steak for dinner around 2230. PSHx of broken femur repair. Patient smokes tobacco but denies alcohol and substance usage. Home medications and allergies are reviewed. - History Of Current Complaint Chief Complaint: EDChestPainROMI Time Seen by Provider: 09/13/19 02:40 Hx Obtained From: Patient Timing: Hours Location: Pain At: - mid sternal chest, epigastric area Aggravating Factor(s): eating Alleviating Factor(s): nothing Associated Signs And Symptoms: Positive: Dizziness - light-headedness, Chest Pain, Nausea, Vomiting, Abdominal Pain, Other - positive - diaphoresis. Negative: Cough, Diarrhea, Fever - Allergies/Home Medications Allergies/Adverse Reactions: Allergies Allergy/AdvReac Type Severity Reaction Status Date / Time No Known Allergies Allergy Verified 09/13/19 02:29 PMH/Surg Hx/FS Hx/Imm Hx Endocrine/Hematology History: Denies: Hx Diabetes Cardiovascular History: Reports: Hx Angina, Hx Hypertension - No meds Denies: Hx Congestive Heart Failure, Hx Myocardial Infarction, Hx Pacemaker/ ICD Respiratory History: Denies: Hx Chronic Obstructive Pulmonary Disease (COPD) GI History: Reports: Hx Gastroesophageal Reflux Disease, Hx Obstructive Bowel, Hx Ulcer - x 3, Other GI Disorders - SBO History: Denies: Hx Renal Disease Musculoskeletal History: Denies: Hx Arthritis Sensory History: Denies: Hx Contacts or Glasses, Hx Legally Blind, Hx Deafness, Hx Hearing Aid Opthamlomology History: Denies: Hx Contacts or Glasses, Hx Legally Blind Neurological History: Reports: Hx Headaches Psychiatric History: Denies: Hx Panic Disorder - Surgical History Surgery Procedure, Year, and Place: [facility] patch repair of perforated ulcer- 2002. Appendectomy - 2009, Ex lap TRISH 08/06/2014, ulcer repair. R Femur surgery 2016 Hx Anesthesia Reactions: No - Immunization History Date of Tetanus Vaccine: unknown Infectious Disease History: No Infectious Disease History: Denies: History Other Infectious Disease, Traveled Outside the [place] in Last 30 Days - Family History Known Family History: Positive: Unknown - Pt is unsure of both parents medical hx due to their early deaths - Social History Alcohol Use: None Hx Substance Use: No Substance Use Type: Reports: None Hx Tobacco Use: Yes Smoking Status (MU): Heavy Every Day Tobacco Smoker Type: Cigarettes Amount Used/How Often: 2 ppd or more Length of Time of Smoking/Using Tobacco: 38 years Have You Smoked in the Last Year: Yes - Additional Comments History Additional Comments: PMHx of GERD and ulcer PSHx of broken femur repair Review of Systems - ROS Summary Review of Systems Summary: Home Medications Medication Instructions Recorded Confirmed Type Omeprazole 40 mg PO BID #60 cap 02/25/17 09/13/19 Rx Pancrelipase (NF) [Creon (NF)] 72,000 units PO TID WITH MEALS 02/25/17 09/13/19 History Sucralfate TAB* [Carafate*] 1 gm PO TID #60 tab 02/25/17 09/13/19 Rx Magnesium Oxide TAB* [MagOx 400 800 mg PO BEDTIME 08/07/19 09/13/19 History TAB*] Ondansetron ODT TAB* [Zofran 4 MG 4 mg PO Q8H PRN #10 tab.odt 08/07/19 09/13/19 Rx Odt TAB*] Pancrelipase (NF) [Creon (NF)] 36,000 units PO BEDTIME 08/07/19 09/13/19 History Polyethylene Glycol 3350* 17 gm PO DAILY PRN #12 packet 08/07/19 09/13/19 Rx [Miralax*] QUEtiapine XR TAB* [Seroquel Xr 50 50 mg PO BEDTIME 08/07/19 09/13/19 History MG TAB*] Sodium Phosphate ADULT ENEMA* 1 enema [place] BEDTIME PRN #1 btl 08/07/19 09/13/19 Rx [Fleet Enema*] busPIRone TAB* [Buspar TAB*] 5 mg PO BID 08/07/19 09/13/19 History traMADol TAB* [Ultram*] 50 - 100 mg PO Q6HR PRN 08/07/19 09/13/19 History Positive: Skin Diaphoresis. Negative: Fever Positive: Chest Pain Negative: Cough Positive: Abdominal Pain, Vomiting, Nausea. Negative: Diarrhea Neurological: Other - positive - light-headedness All Other Systems Reviewed And Are Negative: Yes Physical Exam - Summary Physical Exam Summary: General: Well-developed, Well-nourished MALE. No acute distress. HEENT: Normocephalic, Atraumatic. Eyes: Conjuctiva normal, PERRL. Oropharynx: Clear, mucous membranes moist, (-) exudates. Neck: Soft, FROM, (-) lymphadenopathy, (-) thyromegaly, (-) JVD. Cardiovascular: Normal sinus rhythm, (-) murmur. Lungs: Clear to auscultation bilaterally (-) wheezes, (-) rales, (-) rhonchi. Abdomen: Soft, mild epigastric tenderness, non-distended, (-) organomegaly, normal bowel sounds. Back: (-) CVA tenderness Extremities: No edema. Skin: Warm, dry, (-) rash. Neuro: Alert and oriented x3, no focal deficits. Psychiatric: Mildly anxious appearing. Triage Information Reviewed: Yes Vital Signs On Initial Exam: Initial Vitals Temp Pulse Resp BP Pulse Ox 97.9 F 74 16 172/96 100 09/13/19 02:26 09/13/19 02:26 09/13/19 02:26 09/13/19 02:26 09/13/19 02:26 Vital Signs Reviewed: Yes Procedures - Sedation Patient Received Moderate/Deep Sedation with Procedure: No Diagnostics - Vital Signs Vital Signs Temp Pulse Resp BP Pulse Ox 09/13/19 02:44 66 20 169/103 97 09/13/19 02:26 97.9 F 74 16 172/96 100 - Laboratory Lab Results: Lab Results 09/13/19 09/13/19 09/13/19 Range/Units 02:28 02:28 02:28 WBC 10.4 (3.5-10.8) 10^3/uL RBC 4.64 (4.18-5.48) 10^6 /uL Hgb 14.6 (14.0-18.0) g/dL Hct 43 (42-52) % MCV 92 (80-94) fL MCH 32 H (27-31) pg MCHC 34 (31-36) g/dL RDW 14 (10-15) % Plt Count 302 (150-450) 10^3/uL MPV 8.6 (7.4-10.4) fL Neut % (Auto) 74.5 % Lymph % (Auto) 17.8 % Waldo % (Auto) 6.4 % Eos % (Auto) 0.7 % Baso % (Auto) 0.6 % Absolute Neuts (auto) 7.7 (1.5-7.7) 10^3/ul Absolute Lymphs (auto) 1.8 (1.0-4.8) 10^3/ul Absolute Monos (auto) 0.7 (0-0.8) 10^3/ul Absolute Eos (auto) 0.1 (0-0.6) 10^3/ul Absolute Basos (auto) 0.1 (0-0.2) 10^3/ul Absolute Nucleated RBC 0.0 10^3/ul Nucleated RBC % 0.0 INR (Anticoag Therapy) 1.19 H (0.82-1.09) Sodium 139 (135-145) mmol/L Potassium 3.7 (3.5-5.0) mmol/L Chloride 101 (101-111) mmol/L Carbon Dioxide 27 (22-32) mmol/L Anion Gap 11 (2-11) mmol/L BUN 9 (6-24) mg/dL Creatinine 1.10 (0.67-1.17) mg/dL Est GFR ( Amer) 86.1 (>60) Est GFR (Non-Af Amer) 71.1 (>60) BUN/Creatinine Ratio 8.2 (8-20) Glucose 91 (70-100) mg/dL Calcium 9.7 (8.6-10.3) mg/dL Total Bilirubin 0.50 (0.2-1.0) mg/dL AST 23 (13-39) U/L ALT 22 (7-52) U/L Alkaline Phosphatase 100 (34-104) U/L Troponin I 0.00 (<0.03) ng/mL Total Protein 7.5 (6.4-8.9) g/dL Albumin 4.7 (3.2-5.2) g/dL Globulin 2.8 (2-4) g/dL Albumin/Globulin Ratio 1.7 (1-3) Beta HCG, Quant Pending Result Diagrams: 09/13/19 02:28 09/13/19 02:28 Lab Statement: Any lab studies that have been ordered have been reviewed, and results considered in the medical decision making process. - Radiology CXR Radiology Interpretation Completed By: ED Physician Summary of Radiographic Findings: CXR shows no infiltrate, no pleural effusion, pending official report. - EKG 0221 Cardiac Rate: NL - RATE OF 69 BPM EKG Rhythm: Sinus Rhythm Summary of EKG Findings: EKG showed NSR with rate of 69 BPM, no STEMI. ED physician has reviewed and interpreted this EKG. Complex Multi-Symp Course/Dx Course Of Treatment: 49 year old male presents from home with chest pain/ epigastric pain. on omeprazole. h/o ulcers. concerned about cp. given GI cocktail. improved symptoms. mild epigastric tendernss, labs workup wnl. discharged to home. Follow up with PCP, follow up [facility] for any worsening symptoms. may take maaloz or mylanta for symptoms in addition to omeprazole. - Diagnoses Provider Diagnoses: Epigastric abdominal pain Discharge ED - Sign-Out/Discharge Documenting (check all that apply): Patient Departure - discharge - Discharge Plan Condition: Stable Disposition: HOME Patient Education Materials: Epigastric Pain (ED) Referrals: Jesus Stewart DO [Primary Care Provider] - 3 Days Additional Instructions: PLEASE RETURN TO ED FOR ANY NEW OR WORSENING SYMPTOMS. PLEASE FOLLOW UP WITH YOUR PRIMARY CARE PHYSICIAN WITHIN THREE DAYS. - Billing Disposition and Condition Condition: STABLE Disposition: Home - Attestation Statements Document Initiated by Scribe: Yes Documenting Scribe: ADAN SHELBY Provider For Whom Scribe is Documenting (Include Credential): KATIE YIN MD Scribe Attestation: ADAN Spaulding, scribed for KATIE YIN MD on 09/13/19 at 0521. Scribe Documentation Reviewed: Yes Provider Attestation: The documentation as recorded by the scribe, ADAN SHELBY accurately reflects the service I personally performed and the decisions made by me, KATIE YIN MD Status of Magan Document: Viewed
[2019-09-13 04:29] VITALS: BP 153/94
== END 2019-09-13 04:30 | disposition home or self-care (01) ==
LOC: ED 02:19
DX: R10.13 Epigastric pain (principal); R42 Dizziness and giddiness; R11.2 Nausea with vomiting, unspecified; R61 Generalized hyperhidrosis; I44.4 Left anterior fascicular block; I10 Essential (primary) hypertension; K21.9 Gastro-esophageal reflux disease without esophagitis; F17.210 Nicotine dependence, cigarettes, uncomplicated
CPT/HCPCS: 36415; 71045; 80053; 84484; 84702; 85025; 85610; 93005; 99283; A9270-GY